=== PATIENT | female | born 1995 | race Caucasian/White ===

== ENCOUNTER 2020-03-26 10:14 | Outpatient (REF) | payer OTHER, SELFPAY | END 2020-03-26 10:15 | disposition home or self-care (01) | LOC: HO.LAB 10:14 | PROVIDERS: PCP Internal Medicine; Visit Provider Internal Medicine | DX: Z20.822 Contact with and (suspected) exposure to COVID-19 (principal) | CPT/HCPCS: 36415; C9803; U0003 ==

== ENCOUNTER 2021-04-03 12:26 | Emergency (ER) | payer OTHER, SELFPAY ==
--- NOTE | ~2021-04-03 | XR_ITS ---
EXAMINATION: XR CHEST CLINICAL INFORMATION: Chest pain COMPARISON: None TECHNIQUE: 2 views of the chest were obtained. FINDINGS: No significant abnormality is noted involving the heart, lungs, mediastinum, bony thorax or soft tissues. XR/XR chest 2V IMPRESSION: Unremarkable examination.
[2021-04-03 12:54] VITALS: BP 120/76; PULSE 111; RESP 18; TEMP 36.6; O2SAT 99; BMI 21.7
[2021-04-03] MEDS: Acetaminophen 325 MG TABLET 650 MG PO (19:16)
[2021-04-03 20:22] LABS: MANUAL DIFF FLAG NO
[2021-04-03 20:24] LABS: Basophils Percent Auto 0.2 % (0-2); Eosinophils Absolute Auto 0.2 X10*3/uL (0.0-0.4); Hematocrit 36.8 % (37.0-47.0); Hemoglobin 11.8 g/dl (12.0-16.0); Imm Gran Abs Auto 0.04 X10*3/uL (0.00-0.03); Imm Gran Pct Auto 0.4 % (0.0-0.4); Lymphocytes Absolute Auto 1.8 X10*3/uL (1.2-4.9); Lymphocytes Percent Auto 16.9 % (20-40); Mean Corpuscular HGB Conc 32.1 g/dl (31.0-35.0); Mean Corpuscular Hemoglobin 29.1 pg (27.0-33.0); Mean Corpuscular Volume 90.9 fL (80.0-98.0); Mean Platelet Volume 9.8 fL (9.4-12.3); Monocytes Absolute Auto 0.7 X10*3/uL (0.1-1.2); Monocytes Percent Auto 6.5 % (2-11); Neutrophils Absolute Auto 7.7 x10*3/uL (2.0-8.3); Platelet Count 434 X10*3/uL (160-400); Red Blood Count 4.05 X10*6/uL (4.20-5.50); Red Cell Distribution Width 12.9 % (11.0-16.0); White Blood Count 10.5 X10*3/uL (4.8-10.8)
[2021-04-03 20:35] LABS: Anion Gap 11 (12-20); Blood Urea Nitrogen 5 mg/dL (9-16); Calcium 9.2 mg/dL (8.4-10.2); Carbon Dioxide 26 mmol/L (22-29); Chloride 108 mmol/L (96-108); Creatinine Clr Calc Pharmacy 95.6; Estimated Glomerular Filt Rate > 60; Glucose Random 97 mg/dL (60-115); Potassium 3.6 mmol/L (3.3-5.1); Sodium 141 mmol/L (135-145)
[2021-04-03 21:15] VITALS: BP 101/67; PULSE 103; RESP 18; TEMP 36.8; O2SAT 100
[2021-04-03 23:39] VITALS: BP 100/64; PULSE 87; RESP 16; O2SAT 100
== END 2021-04-04 01:55 | disposition left against medical advice (07) ==
PROVIDERS: Emergency Provider Emergency Medicine
DX: R00.2 Palpitations (principal); I10 Essential (primary) hypertension
CPT/HCPCS: 36415; 71046; 80048; 85025; 99283

== ENCOUNTER 2022-05-24 21:44 | Emergency (ER) | payer OTHER, SELFPAY ==
[2022-05-24 22:12] VITALS: BP 109/67; PULSE 88; RESP 16; TEMP 36.5; O2SAT 99; BMI 27.3
--- NOTE | 2022-05-24 22:16 | ED.EAR ---
HPI - Ear Problem General Chief complaint: Ear Problems Stated complaint: ?left ear infection Time Seen by Provider: 05/24/22 22:16 Source: patient Mode of arrival: ambulatory Limitations: no limitations History of Present Illness HPI Narrative: 26-year-old female presents with 1 day of left ear pain and sore throat. MD Complaint: ear pain and decreased hearing Location: left ear Duration: constant Severity: moderate Relieving factors: nothing Exacerbating factors: chewing and palpation Discharge from ear: no Associated symptoms ear: neck pain Treatment prior to arrival: none Related Data Previous Rx's Medication Instructions Recorded cefuroxime axetil 500 mg tablet 500 mg PO Q12H 10 days #20 tabs 05/24/22 Allergies Allergy/AdvReac Type Severity Reaction Status Date / Time Penicillins [PENICILLINS] Allergy Unknown Rash Verified 05/24/22 22:51 Review of Systems Review of Systems: Constitutional: No Fever, positive Chills ENT/Mouth: Positive right Ear Pain, No Hoarseness, positive sore throat Cardiovascular: No Chest Pain, No SOB Respiratory: No Cough, No Dyspnea Gastrointestinal: No Nausea, No Vomiting, No Diarrhea, No abdominal Pain Genitourinary: No Dysuria, No Hematuria Musculoskeletal: No joint pain, No Myalgias Skin: No Skin lacerations, No rash Neuro: No Weakness, No Numbness, No Paresthesias, No Dizziness, No Headache Yes all other systems are reviewed and are negative [facility] Past Medical History Attestation statement: The following information was validated with the patient. Source: old records reviewed Social History Social History Advance Directives: No Advance Directives Information Provided: No Physical Exam Vital Signs: Vital Signs: Last Vital Signs Temp 97.7 F 05/24/22 22:12 Pulse 88 05/24/22 22:12 Resp 16 05/24/22 22:12 BP 109/67 05/24/22 22:12 Pulse Ox 99 05/24/22 22:12 O2 Del Method 05/24/22 22:12 BMI result Body Mass Index 27.3 Appearance: Alert. Oriented X3. Moderate distress. Eyes: Pupils equal, round and reactive to light. ENT: Pharynx erythematous with bilateral bulging tonsils with exudates, bilateral tympanic membranes erythematous bulging, left worse than the right. Left canal erythematous, right canal normal. Neck: Normal inspection. Neck supple. No mastoid tenderness. No vertebral tenderness step-offs. CVS: Normal heart rate and rhythm. Pulses normal. Respiratory: No respiratory distress. Skin: Skin warm and dry. Normal skin color. Extremities: Gait well bounce well coordinated. Neuro: No motor deficit. No sensory deficit. Cranial nerves 2-12 intact. Course Course Course Narrative: 26-year-old female presents for left ear pain and sore throat for 1 day. Patient states that she is unable to lay on the left side, and has not taken any medications to alleviate her pain. She does use Q-tips on a daily basis, and states that it was very tender cleaning her ears. She does not use ear buds, and have not gone swimming recently. She is currently breast feeding. She is allergic to penicillin, it was reported that the patient turned red as an infant while her mother was breast-feeding and taking penicillin at that time. She has not had any penicillins since. Physical exam indicates bilateral otitis media, left worse than the right left involving the canal, no perforation to the membranes, no mastoid tenderness, posterior and anterior cervical lymphadenopathy noted, pharyngeal exam indicates exam consistent with strep with pharyngeal erythema bulging tonsils with exudates patient is able to manage secretions, swallowing without difficulty. No indication of peritonsillar abscess or epiglottitis. Patient is afebrile, nontoxic-appearing, being able to manage secretions, even unlabored respirations, vital signs stable and within normal limits, O2 sat 99% on room air. Will try cefuroxime as patient is at this time. Patient verbalized understanding of and agrees to plan of care discharge home. Verbalized understanding of signs symptoms indicating need for emergent intervention Medications Administered Discontinued Medications Generic Name Dose Route Start Last Admin Trade Name Freq PRN Reason Stop Dose Admin Acetaminophen 650 mg 05/24/22 22:33 05/24/22 22:36 Acetaminophen 325 Mg Tablet PO 05/24/22 22:34 650 mg ONCE ONE Administration Cefuroxime Axetil 500 mg 05/24/22 22:23 05/24/22 22:35 Cefuroxime Axetil 500 Mg Tablet PO 05/24/22 22:24 500 mg ONCE ONE Administration Medical Decision Making Differential Diagnosis Differential Diagnoses: The differential diagnosis associated with the presentation includes Otitis media, otitis externa, mastoiditis, URI, pharyngitis, tonsillitis, epiglottitis, peritonsillar abscess External Record Review No prior records for this patient at this facility Prescription Management I considered prescription management with: Pain Medication and Antibiotic Discharge Plan Discharge Clinical Impression: Otitis media, Pharyngitis Patient Disposition: Home, Self-Care Instructions: Pharyngitis (ED), Ear Infection (ED) Additional Instructions: You were evaluated for your pain. Your physical exam indicates bilateral otitis media (ear infections) and pharyngitis. Please take cefuroxime 500 mg twice a day for the next 10 days. This medication is an antibiotic. This medication is safe to use while . We gave her 1st dose at 23:00. Your next dose is due at 11:00. Please take this medication every 12 hours. Complete the entire course of this medication. For pain management, take Tylenol 650 mg every 6 hours as needed. This medication will control fevers and pain. Write down what time you take this medication in order to prevent accidental overdose. This medication is safe for breast-feeding. Last dose was given to you around 23:00. Next dose is due at 05:00. Thank you for choosing this emergency department for evaluation. Please follow-up with primary care physician as needed. Return to the emergency department for any new, concerning, or worsening symptoms. Prescriptions: New cefuroxime axetil 500 mg tablet 500 mg PO Q12H 10 Days Qty: 20 0RF
[2022-05-24] MEDS: Acetaminophen 325 MG TABLET 650 MG PO (22:36)
== END 2022-05-24 23:36 | disposition home or self-care (01) ==
PROVIDERS: Emergency Provider Emergency Medicine Emergency Medical Services; PCP Physician Assistant
DX: H66.93 Otitis media, unspecified, bilateral (principal); J02.9 Acute pharyngitis, unspecified
CPT/HCPCS: 99283

== ENCOUNTER 2024-02-08 14:51 | Emergency (ER) | payer OTHER, SELFPAY ==
--- NOTE | ~2024-02-08 | XR_ITS ---
EXAMINATION: XR CHEST CLINICAL INFORMATION: Chest pain COMPARISON: X-ray 04/03/2021 TECHNIQUE: Frontal view of the chest was obtained. FINDINGS: No significant abnormality is noted involving the heart, lungs, mediastinum, bony thorax or soft tissues. XR/XR chest 1V IMPRESSION: No evidence of acute pulmonary process. Electronically signed by: Joe Silvestre MD 02/08/2024 09:56 PM EST
--- NOTE | 2024-02-08 14:52 | ECG_ITS ---
Test Reason : CP Blood Pressure : / mmHG Vent. Rate : 097 BPM Atrial Rate : 097 BPM P-R Int : 152 ms QRS Dur : 084 ms QT Int : 334 ms P-R-T Axes : 080 085 064 degrees QTc Int : 424 ms Normal sinus rhythm Normal ECG No previous ECGs available Referred By: Generic ED Physician Electronically Signed By:SCARLET SALDAÑA MD
[2024-02-08 15:57] VITALS: BP 99/56; PULSE 83; RESP 16; TEMP 36.9; O2SAT 99; BMI 24.9
--- NOTE | 2024-02-08 16:01 | ED.CHESTPAIN ---
HPI - Chest Pain General Chief Complaint: Chest Pain Stated Complaint: chest pain History of Present Illness HPI narrative: Patient left completion of treatment by ED Provider Related Data Previous Rx's ?Medication ?Instructions ?Recorded cefuroxime axetil 500 mg tablet 500 mg PO Q12H 10 days #20 tabs 05/24/22 cefuroxime axetil 500 mg tablet 500 mg PO Q12H 10 days #20 tabs 05/25/22 Allergies Allergy/AdvReac Type Severity Reaction Status Date / Time Penicillins [PENICILLINS] Allergy Unknown Rash Verified 02/08/24 15:59 [facility] Social History Social History Advance Directives: No Advance Directives Information Provided: No Physical Exam Vital Signs: Vital Signs: Last Vital Signs Temp 98.4 F 02/08/24 15:57 Pulse 83 02/08/24 15:57 Resp 16 02/08/24 15:57 BP 99/56 L 02/08/24 15:57 Pulse Ox 99 02/08/24 15:57 O2 Del Method Room Air 02/08/24 15:57 BMI result Body Mass Index 24.9 Course Course Course Narrative: RME: 28-year-old female presents to ED for chest pain/chest tightness slight inspiration. Patient denies any URI symptoms. Patient denies any recent long travel recent surgery patient denies any control use. Bilateral lower extremity negative for swelling or pitting edema. Lungs clear. EKG chest x-ray labs ordered. Medical Decision Making Lab Data 02/08/24 16:14 02/08/24 16:14 Labs: Lab Results 02/08/24 02/08/24 Range/Units 16:13 16:14 WBC 6.8 (4.8-10.8) X10*3/uL RBC 4.01 L (4.20-5.50) X10*6/uL Hgb 12.1 (12.0-16.0) g/dl Hct 36.2 L (37.0-47.0) % MCV 90.3 (80.0-98.0) fL MCH 30.2 (27.0-33.0) pg MCHC 33.4 (31.0-35.0) g/dl RDW 12.6 (11.0-16.0) % Plt Count 342 (160-400) X10*3/uL MPV 9.9 (9.4-12.3) fL Immature Gran % (Auto) 0.3 (0.0-0.4) % Neut % (Auto) 67.8 (45-73) % Lymph % (Auto) 21.8 (20-40) % [place] % (Auto) 7.4 (2-11) % Eos % (Auto) 2.4 (0-4) % Baso % (Auto) 0.3 (0-2) % Lymph # (Auto) 1.5 (1.2-4.9) X10*3/uL [place] # (Auto) 0.5 (0.1-1.2) X10*3/uL Eos # (Auto) 0.2 (0.0-0.4) X10*3/uL Baso # (Auto) 0.0 (0.0-0.2) X10*3/uL Abs Immat Gran (auto) 0.02 (0.00-0.03) X10*3/uL Absolute Neuts (auto) 4.6 (2.0-8.3) x10*3/uL Absolute Nucleated RBC 0.000 (0.0-0.012) X10*3/uL Nucleated RBC % (auto) 0.0 (0.0-0.2) /100WBC PT 12.8 H (10.9-12.4) SEC INR 1.1 (0.9-1.1) APTT 36.7 (26.0-36.8) SEC Sodium 140 (135-145) mmol/L Potassium 3.7 (3.3-5.1) mmol/L Chloride 109 H (96-108) mmol/L Carbon Dioxide 24 (22-29) mmol/L Anion Gap 11 L (12-20) BUN 17 H (9-16) mg/dL Creatinine 0.79 (0.5-1.4) mg/dL Estim Creat Clear Calc 89.7 Estimated GFR > 60 Random Glucose 92 (60-115) mg/dL Calcium 9.2 (8.4-10.2) mg/dL Total Bilirubin 0.2 (0.0-1.0) mg/dL AST 20 (5-31) U/L ALT 14 (0-31) U/L Alkaline Phosphatase 49 (39-117) U/L Troponin I High Sens < 2.7 (<3.5-17.0) ng/L B-Natriuretic Peptide 11 (<100) pg/mL Total Protein 6.7 (6.5-8.0) g/dL Albumin 4.1 (3.5-5.0) g/dL Influenza Type A (PCR) NEGATIVE (Negative) Influenza Type B (PCR) NEGATIVE (Negative) RSV RNA Qual (PCR) NEGATIVE (Negative) SARS-CoV-2 RNA (RT-PCR) NEGATIVE (Negative) S. pyogenes GrpA BHAVANI Positive A (Negative) Discharge Plan Discharge Clinical Impression: Chest pain Patient Disposition: Left W/O Completing Treatment Prescriptions: No Action cefuroxime axetil 500 mg tablet 500 mg PO Q12H 10 Days Qty: 20 0RF cefuroxime axetil 500 mg tablet 500 mg PO Q12H 10 Days Qty: 20 0RF Discharge Date/Time: 02/08/24 22:05
[2024-02-08 16:18] LABS: MANUAL DIFF FLAG NO
[2024-02-08 16:20] LABS: Basophils Percent Auto 0.3 % (0-2); Eosinophils Absolute Auto 0.2 X10*3/uL (0.0-0.4); Eosinophils Percent Auto 2.4 % (0-4); Hematocrit 36.2 % (37.0-47.0); Hemoglobin 12.1 g/dl (12.0-16.0); Imm Gran Abs Auto 0.02 X10*3/uL (0.00-0.03); Imm Gran Pct Auto 0.3 % (0.0-0.4); Lymphocytes Absolute Auto 1.5 X10*3/uL (1.2-4.9); Lymphocytes Percent Auto 21.8 % (20-40); Mean Corpuscular HGB Conc 33.4 g/dl (31.0-35.0); Mean Corpuscular Hemoglobin 30.2 pg (27.0-33.0); Mean Corpuscular Volume 90.3 fL (80.0-98.0); Mean Platelet Volume 9.9 fL (9.4-12.3); Monocytes Absolute Auto 0.5 X10*3/uL (0.1-1.2); Monocytes Percent Auto 7.4 % (2-11); Neutrophils Absolute Auto 4.6 x10*3/uL (2.0-8.3); Neutrophils Percent Auto 67.8 % (45-73); Platelet Count 342 X10*3/uL (160-400); Red Blood Count 4.01 X10*6/uL (4.20-5.50); Red Cell Distribution Width 12.6 % (11.0-16.0); White Blood Count 6.8 X10*3/uL (4.8-10.8)
[2024-02-08 16:25] LABS: IDNOW Serial# 08D9AD1C; INTERNATIONAL NORM RATIO 1.1 (0.9-1.1); Prothrombin Time 12.8 SEC (10.9-12.4); Strep A Nucleic Acid Positive (Negative)
[2024-02-08 16:28] LABS: Partial Thromboplastin Time 36.7 SEC (26.0-36.8)
[2024-02-08 16:38] LABS: Alanine Aminotransferase 14 U/L (0-31); Albumin Level 4.1 g/dL (3.5-5.0); Anion Gap 11 (12-20); Aspartate Amino Transferase 20 U/L (5-31); Bilirubin Total 0.2 mg/dL (0.0-1.0); Blood Urea Nitrogen 17 mg/dL (9-16); Calcium 9.2 mg/dL (8.4-10.2); Carbon Dioxide 24 mmol/L (22-29); Chloride 109 mmol/L (96-108); Creatinine Clr Calc Pharmacy 89.7; Estimated Glomerular Filt Rate > 60; Glucose Random 92 mg/dL (60-115); Potassium 3.7 mmol/L (3.3-5.1); Sodium 140 mmol/L (135-145); Total Protein 6.7 g/dL (6.5-8.0)
[2024-02-08 16:41] LABS: B Type Natriuretic Peptide 11 pg/mL (<100)
[2024-02-08 16:45] LABS: Troponin-I High Sensitivity < 2.7 ng/L (<3.5-17.0)
[2024-02-08 16:52] LABS: Alkaline Phosphatase 49 U/L (39-117)
[2024-02-08 17:00] LABS: Influenza A PCR NEGATIVE (Negative); Influenza B PCR NEGATIVE (Negative); Resp Syncy Virus RNA Qual PCR NEGATIVE (Negative); SARS COV2 PCR INHOUSE NEGATIVE (Negative)
--- OUTSIDE RECORDS SUMMARY | 2024-02-12 13:13 | XMS_ITS | Continuity of Care Document ---
Author Organization [facility] Address [address] [place] [address]- Care Team Providers Care Room Service Attendant Name Role Phone Brendan MAYBERRY, Lona Rudd Primary Care Physician [phone] Encounter [facility] R [id number] Date(s): 08/27/21 - 10/24/21 [facility] [address] [facility] [place] [address]- Attending Physician: Shikha BROWN, Jesi Irizarry Admitting Physician: Shikha BROWN, Jesi Irizarry Referring Physician: Denise JOHNSON, SIZE ROLLER OPERATOR, Aliyah Nails Allergies, Adverse Reactions, Alerts Substance Reaction Severity Status amoxicillin Active penicillin Active Immunizations Given and Recorded Vaccine Date Status Refusal Reason tetanus/diphtheria/pertussis, acel(Tdap) 1 10/06/18 Given rabies vaccine, human diploid cell 10/27/12 Given rabies vaccine, human diploid cell 10/23/12 Given rabies vaccine, human diploid cell 10/16/12 Given Rabies Immune Globulin, Human 2 10/16/12 Given 1Result Comment: Given R deltoid 2Result Comment: given by MD Medications Colace sodium 100 mg oral capsule 100 mg, 1, capsule, By Mouth, Daily, PRN, # 20 capsule, Refills 1, Tot. Refills 1, Maintenance, forconstipation, 07/24/21 20:45:00 EDT, Route to Pharmacy Electronically, [facility]/pharmacy #[id number], Partial fill upon patient request if the prescription is for... Start Date: 07/24/21 Status: Ordered Prenatabs Rx oral tablet 1 tablet, By Mouth, Daily, # 30 tablet, 11 Refills, Maintenance, 11/02/20 9:51:00 EDT, Tablet, [facility]/pharmacy #[id number], Partial fill upon patient request if the prescription is for a schedule II opioid drug., 1 tablet By Mouth Daily, 163, cm, 11/02/20 9:35... Start Date: 11/02/20 Status: Ordered Multivitamins with Folic Acid 1 mg oral tablet 1 tablet, By Mouth, Daily, # 90 tablet, 3 Refills, Maintenance, 07/16/21 15:00:00 EDT, Tablet, [facility]/pharmacy #[id number], Partial fill upon patient request if the prescription is for a schedule II opioid drug., 1 tablet By Mouth Daily, 163, cm, 11/02/20 9:35... 

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
--- OUTSIDE RECORDS SUMMARY | 2024-02-12 13:13 | XMS_ITS | Continuity of Care Document ---
Author Organization [facility] Address [address] [place] [address]- Care Team Providers Care Polystyrene Bead Molder Name Role Phone Brendan MAYBERRY, Lona Rudd Primary Care Physician [phone] Encounter [facility] Date(s): 08/27/21 - 12/04/[address] [address]- Attending Physician: Not on Staff, Attending MD Allergies, Adverse Reactions, Alerts Substance Reaction Severity [...] 07/24/21 20:45:00 EDT, Route to Pharmacy Electronically, [facility]/pharmacy #[id number], Partial fill upon patient request if the prescription is for... Start Date: 07/24/21 Status: Ordered Prenatabs Rx oral tablet 1 tablet, By Mouth, Daily, # 30 tablet, 11 Refills, Maintenance, 11/02/20 9:51:00 EDT, Tablet, [facility]/pharmacy #[id number], Partial fill upon patient request if [...] 100 in lifetime) entered on: 06/02/18 Sex Care Team Personnel Name: Brendan MAYBERRY, Lona Rudd Address: [address] [place] [address] Primary Care [place], [place] [address]
--- OUTSIDE RECORDS SUMMARY | 2024-02-12 13:13 | XMS_ITS | Continuity of Care Document ---
Author Organization [facility] Address [address] [place] [address]- Care Team Providers Care Machine Stacker Name Role Phone Brendan MAYBERRY, Lona Rudd Primary Care Physician [place] [facility] [place]02[place] - 01/01/[address] [address]- Attending Physician: Oumou Catalna Admitting Physician: AdmtrOumou Referring Physician: AdmtrOumou Allergies, Adverse Reactions, Alerts Substance Reaction Severity [...] 07/24/21 20:45:00 EDT, Route to Pharmacy Electronically, [facility]/pharmacy #[id number], Partial fill upon patient request if the prescription is for... Start Date: 07/24/21 Status: Ordered Prenatabs Rx oral tablet 1 tablet, By Mouth, Daily, # 30 tablet, 11 Refills, Maintenance, 11/02/20 9:51:00 EDT, Tablet, [facility]/pharmacy #[id number], Partial fill upon patient request [...] Date: 07/16/21 Status: Ordered Problem List Condition Confirmation Course Effective Dates Status Health St atus Informant Acne Confirmed Active Anxiety Confirmed Active Constipation Confirmed Active Nipple discharge Confirmed Active Chronic GERD Confirmed Active History of section Confirmed Active History of triplet in prior Confirmed Active History of delivery Confirmed Active COVID-19 vaccine series completed Confirmed Active Confirmed Active Social History Social History Type Response Smoking Status Never (less than 100 in lifetime) entered on: 06/02/18 Sex Patient Care team information Personnel Name: Brendan MAYBERRY, Lona Rudd Address: Address: [facility] [place], [place] [address]
--- OUTSIDE RECORDS SUMMARY | 2024-02-12 13:13 | XMS_ITS | Continuity of Care Document ---
Author Organization [facility] Address [address] [place] [address]- Care Team Providers Care Fan Runner Name Role Phone Brendan MAYBERRY, Lona Rudd Primary Care Physician [phone] Encounter [facility] [place] Date(s): 08/27/21 - 10/27/[address] [address]- Attending Physician: Not on Staff, Attending MD [...] 07/24/21 20:45:00 EDT, Route to Pharmacy Electronically, [facility]/pharmacy #[id number], Partial fill upon patient request if the prescription is for... Start Date: 07/24/21 Status: Ordered Prenatabs Rx oral tablet 1 tablet, By Mouth, Daily, # 30 tablet, 11 Refills, Maintenance, 11/02/20 9:51:00 EDT, Tablet, [facility]/pharmacy #[id number], Partial fill upon patient request if [...]
--- OUTSIDE RECORDS SUMMARY | 2024-02-12 13:13 | XMS_ITS | Continuity of Care Document ---
Author Organization [facility] Address [address] [place] [address]- Care Team Providers Care Electrical Laboratory Technician Name Role Phone Brendan MAYBERRY, Lona Rudd Primary Care Physician Encounter [facility] Date(s): 09/03/21 - 01/01/[address] [address]- Attending Physician: Not on Staff, Attending MD [...] 07/24/21 20:45:00 EDT, Route to Pharmacy Electronically, [facility]/pharmacy #[id number], Partial fill upon patient request if the prescription is for... Start Date: 07/24/21 Status: Ordered Prenatabs Rx oral tablet 1 tablet, By Mouth, Daily, # 30 tablet, 11 Refills, Maintenance, 11/02/20 9:51:00 EDT, Tablet, [facility]/pharmacy #[id number], Partial fill upon patient request [...] Name: Brendan MAYBERRY, Lona Rudd Address: Address: [address] [place] [address] Primary Care [place], [place] [address]
--- OUTSIDE RECORDS SUMMARY | 2024-02-12 13:13 | XMS_ITS | Continuity of Care Document ---
Author Organization [facility] Address [address] [place] [address]- Care Team Providers Care Transportation Director Name Role Phone Brendan MAYBERRY, Lona Rudd Primary Care Physician En[place] [facility] [place] Date(s): 09/27/21 - 10/27/[address] [address]- Attending Physician: Oumou Catalan Admitting Physician: AdmOumou lozada Referring Physician: AdmtrOumou Allergies, Adverse Reactions, Alerts [...] 07/24/21 20:45:00 EDT, Route to Pharmacy Electronically, [facility]/pharmacy #[id number], Partial fill upon patient request if the prescription is for... Start Date: 07/24/21 Status: Ordered Prenatabs Rx oral tablet 1 tablet, By Mouth, Daily, # 30 tablet, 11 Refills, Maintenance, 11/02/20 9:51:00 EDT, Tablet, [facility]/pharmacy #[id number], Partial fill upon patient request [...]
--- OUTSIDE RECORDS SUMMARY | 2024-02-12 13:13 | XMS_ITS | Continuity of Care Document ---
Author Organization [facility] Address [address] [place] [address]- Care Team Providers Care Senior Administrative Support Name Role Phone Brendan MAYBERRY, Lona Rudd Primary Care Physician Encounter [facility] Date(s): 12/25/20 - 01/24/[address] [address] Allergies, Adverse Reactions, Alerts Substance Reaction Severity [...] deltoid 2Result Comment: given by MD Medications Prenatabs Rx oral tablet 1 tablet, By Mouth, Daily, # 30 tablet, 11 Refills, Maintenance, 11/02/20 9:51:00 EDT, Tablet, [id number], Partial fill upon patient request if the prescription is for a schedule II opioid drug., 1 tablet By Mouth Daily, 163, cm, 11/02/20 9:35... Start Date: 11/02/20 Status: Ordered Problem List Condition Effective Dates Status Health Status Inform ant Chronic GERD(Confirmed) Active Contraception management(Confirmed) Active Social History Social History Type Response Smoking Status Never (less than 100 in lifetime) entered on: 06/02/18 Sex
--- OUTSIDE RECORDS SUMMARY | 2024-02-12 13:13 | XMS_ITS | Continuity of Care Document ---
Author Organization [facility] Address [address] [place] [address]- Care Team Providers Care Security Nurse Name Role Phone Brendan MAYBERRY, Lona Rudd Primary Care Physician Encounter [facility] Date(s): 08/13/20 - 09/12/[address] [address]- Allergies, Adverse Reactions, Alerts Substance Reaction Severity [...] deltoid 2Result Comment: given by MD Medications Apri 0.15 mg-0.03 mg oral tablet 1 tablet, By Mouth, Daily, # 28 tablet, 6 Refills, Maintenance, 06/18/20 8:34:00 EDT, Tablet, [id number], Partial fill upon patient request if the prescription is for a schedule II opioid drug., 1 tablet By Mouth Daily,x28 days, 163, cm, 06/18... Start Date: 06/18/20 Stop Date: 12/31/20 Status: Ordered Diflucan 150 mg oral tablet 1 tablet = 150 mg, By Mouth, Once, # 1 tablet, 1 Refills, Soft Stop, 06/18/20 8:46:00 EDT, [id number], Partial fill upon patient request if the prescription is for a schedule II opioid drug.,163, cm, 06/18/20 8:21:00 EDT, Height, 74.09, kg, 0... Start Date: 06/18/20 Status: Ordered Problem List Condition Effective Dates Status Health Status Inform ant Chronic GERD(Confirmed) Active Contraception management(Confirmed) Active Social History Social History Type Response Smoking Status Never (less than 100 in lifetime) entered on: 06/02/18 Sex
--- OUTSIDE RECORDS SUMMARY | 2024-02-12 13:13 | XMS_ITS | Continuity of Care Document ---
Author Organization [facility] Address [address] [place] [address]- Care Team Providers Care Power Shovel Engineer Name Role Phone Lona Cardona MD Primary Care Physician Encounter [facility] [place] Date(s): 07/14/20 - 11/11/[address] [address] Attending Physician: Anastasia Toney CNM Admitting Physician: Anastasia Toney CNM Referring Physician: Lona Cardona MD Allergies, Adverse Reactions, Alerts Substance Reaction [...] Given R deltoid 2Result Comment: given by Medications Prenatabs Rx oral tablet 1 tablet, [...]
--- OUTSIDE RECORDS SUMMARY | 2024-02-12 13:13 | XMS_ITS | Continuity of Care Document ---
Author Organization [facility] Address [address] [place] [address]- Care Team Providers Care Rn Child Name Role Phone Brendan MAYBERRY, Lona Rudd Primary Care Physician [phone] Encounter [facility] Date(s): 12/19/19 - 01/18/20 [facility] [address] [place] [address]- [facility] Allergies, Adverse Reactions, Alerts Substance Reaction Severity [...] capsule 100 mg, 1, capsule, By Mouth, 2 times a day, PRN, # 60 capsule, Refills 0, Tot. Refills 0, Maintenance, for constipation, 11/23/18 13:42:11 EDT, Route to Pharmacy Electronically, [id number], [facility]/pharmacy #[id number] Start Date: 11/23/18 Status: Ordered ferrous sulfate 325 mg oral tablet 1 tablet = 325 mg, By Mouth, Daily, # 30 tablet, 6 Refills, Maintenance, 06/14/18 16:09:26 EDT Start Date: 06/14/18 Status: Ordered Folic Acid Daily, 0 Refills, Maintenance, 06/11/18 11:57:58 EDT Start Date: 06/11/18 Status: Ordered ibuprofen 600 mg oral tablet 600 mg, 1, tablet, By Mouth, Every 6 hours, PRN, # 40 tablet, Refills 0, Tot. Refills 0, Maintenance, for pain, 11/23/18 13:42:01 EDT, Route to Pharmacy Electronically, [id number], [facility]/pharmacy #[id number] Start Date: 11/23/18 Status: Ordered oxyCODONE 5 mg oral tablet 5 mg, 1, tablet, By Mouth, Every 6 hours, PRN, # 20 tablet, Refills 0, Tot. Refills 0, Maintenance,for pain, 11/23/18 13:41:54 EDT, Route to Pharmacy Electronically, [id number], [facility]/pharmacy #[id number], Partial fill upon patient... Start Date: 11/23/18 Status: Ordered Multivitamins By Mouth, Daily, 0 Refills, Maintenance, 06/11/18 11:57:49 EDT Start Date: 06/11/18 Status: Ordered Senna 8.6 mg oral tablet 8.6 mg, 1, tablet, By Mouth, Daily, PRN, # 12 tablet, Refills 0, Tot. Refills 0, Maintenance, for constipation, 11/23/18 13:42:19 EDT, Route to Pharmacy Electronically, [id number], [facility]/pharmacy #[id number] Tablet Start Date: 11/23/18 Status: Ordered simethicone 80 mg oral tablet, chewable 80 mg, 1, tablet, Chew, 4 times a day, # 48 tablet, Refills 0, Tot. Refills 0, Maintenance, 11/23/18 13:42:16 EDT, Route to Pharmacy Electronically, [id number], [facility]/pharmacy#207 Start Date: 11/23/18 Status: Ordered Tylenol 325 mg oral capsule 2 capsule = 650 mg, By Mouth, Every 4 hours, PRN as needed for pain, # 90 capsule, 1 Refills, Maintenance, 11/23/18 13:42:07 EDT, Capsule Start Date: 11/23/18 Status: Ordered Zantac 150 oral tablet 1 tablet = 150 mg, By Mouth, 2 times a day, # 180 tablet, 1 Refills, Maintenance, 08/12/18 13:56:07EDT, Tablet Start Date: 08/12/18 Status: Ordered Problem List Condition Effective Dates Status Health Status Inform ant Chronic GERD(Confirmed) Active Social History Social History Type Response Smoking Status Never (less than 100 in lifetime) entered on: 06/02/18 Sex
--- OUTSIDE RECORDS SUMMARY | 2024-02-12 13:14 | XMS_ITS | Continuity of Care Document ---
Author Organization [facility] Address [address] [place] [address]- Care Team Providers Care Drywall Taper Name Role Phone Lona Cardona MD Primary Care Physician [phone] Encounter [facility] Date(s): 09/24/21 - 10/24/21 [facility] [address] [facility] [place] [address]- Attending Physician: AdmOumou lozada Admitting Physician: Admtr, Ar8 Referring Physician: Admtr, Ar8 Allergies, Adverse Reactions, Alerts Substance Reaction Severity [...] 07/24/21 20:45:00 EDT, Route to Pharmacy Electronically, [facility]/pharmacy #[id number], Partial fill upon patient request if the prescription is for... Start Date: 07/24/21 Status: Ordered Prenatabs Rx oral tablet 1 tablet, By Mouth, Daily, # 30 tablet, 11 Refills, Maintenance, 11/02/20 9:51:00 EDT, Tablet, [facility]/pharmacy #[id number], Partial fill upon patient request [...]
--- OUTSIDE RECORDS SUMMARY | 2024-02-12 13:14 | XMS_ITS | Continuity of Care Document ---
Author Organization [facility] Address [address] [place] [address]- Care Team Providers Care Telephone Solicitor Supervisor Name Role Phone Brendan MAYBERRY, Lona Rudd Primary Care Physician Encounter [facility] [place] Date(s): 10/10/21 - 11/15/[address] [address]- Attending Physician: Enriqueta MAYBERRY, Ny Paige Admitting Physician: Ny Robison MD Referring Physician: Denise JOHNSON, ONCOLOGY ACCOUNT SPECIALIST, Aliyah Nails Allergies, Adverse Reactions, Alerts Substance [...] R deltoid 2Result Comment: given by Medications Colace sodium 100 mg oral capsule 100 mg, 1, capsule, By Mouth, Daily, PRN, # 20 capsule, Refills 1, Tot. Refills 1, Maintenance, forconstipation, 07/24/21 20:45:00 EDT, Route to Pharmacy Electronically, [facility]/pharmacy #[id number], Partial fill upon patient request if the [...] 06/02/18 Sex Care Team Personnel Name: Brendan AMYBERRY, oLna Rudd Address: [address] [place] [address]
--- OUTSIDE RECORDS SUMMARY | 2024-02-12 13:14 | XMS_ITS | Continuity of Care Document ---
Author Organization [facility] Address [address] [place] [address]- Care Team Providers Care Veneer Taping Machine Operator Name Role Phone Brendan MAYBERRY, Lona Rudd Primary Care Physician Encounter [facility] Date(s): 11/02/20 - 12/02/[address] [address]- Attending Physician: Oumou Catalan Admitting Physician: AdmOumou [...]
--- OUTSIDE RECORDS SUMMARY | 2024-02-12 13:14 | XMS_ITS | Continuity of Care Document ---
Author Organization [facility] Address [address] [place] [address]- Care Team Providers Care Tracer Clerk Name Role Phone Brendan MAYBERRY, Lona Rudd Primary Care Physician [place] [facility] [place] 07/01/21 - 07/31/[address] [address] Allergies, Adverse Reactions, Alerts Substance Reaction Severity [...] 20:45:00 EDT, Route to Pharmacy Electronically, [facility]/pharmacy #[id number], Partial fill upon patient request if the prescription is for... Start Date: 07/24/21 Status: Ordered Prenatabs Rx oral tablet 1 tablet, By Mouth, Daily, # 30 tablet, 11 Refills, Maintenance, 11/02/20 9:51:00 EDT, Tablet, [facility]/pharmacy #1234, Partial fill upon patient request if the prescription is for a schedule II opioid drug., 1 tablet By Mouth Daily, 163, cm, 11/02/20 9:35... Start Date: 11/02/20 Status: Ordered Multivitamins with Folic Acid 1 mg oral tablet 1 tablet, By Mouth, Daily, # 90 tablet, 3 Refills, Maintenance, 07/16/21 15:00:00 EDT, Tablet, [facility]/pharmacy #[id number], Partial fill upon patient request if the [...]
--- OUTSIDE RECORDS SUMMARY | 2024-02-12 13:14 | XMS_ITS | Continuity of Care Document ---
Author Organization [facility] Address [address] [place] [address]- Care Team Providers Care Veneer Taper Name Role Phone Brendan MAYBERRY, Lona Rudd Primary Care Physician Encounter [facility] [place] Date(s): 07/26/21 - 08/25/[address] [address] Allergies, Adverse Reactions, Alerts Substance Reaction [...] 07/24/21 20:45:00 EDT, Route to Pharmacy Electronically, [facility]/pharmacy #[id number], Partial fill upon patient request if the prescription is for... Start Date: 07/24/21 Status: Ordered Prenatabs Rx oral tablet 1 tablet, By Mouth, Daily, # 30 tablet, 11 Refills, Maintenance, 11/02/20 9:51:00 EDT, Tablet, [facility]/pharmacy #[id number], Partial fill upon patient request if the prescription is for a schedule II opioid drug., 1 tablet By Mouth Daily, 163, cm, 11/02/20 9:35... Start Date: 11/02/20 Status: Ordered Multivitamins with Folic Acid 1 mg oral tablet 1 tablet, By Mouth, Daily, # 90 tablet, 3 Refills, Maintenance, 07/16/21 15:00:00 EDT, Tablet, [facility]/pharmacy #[id number], Partial fill upon patient request if the [...]
== END 2024-02-08 22:05 | disposition left against medical advice (07) ==
PROVIDERS: Physician Assistant; Emergency Provider Emergency Medicine Emergency Medical Services; PCP Physician Assistant
DX: R07.9 Chest pain, unspecified (principal); J02.0 Streptococcal pharyngitis; Z03.818 Encounter for observation for suspected exposure to other biological agents ruled out
CPT/HCPCS: 0241U; 36415; 71045; 80053; 83880; 84484; 85025; 85610; 85730; 87651; 93005; 99283

== ENCOUNTER → 2024-02-08 14:52 | Outpatient (BNV) | payer OTHER, SELFPAY | PROVIDERS: PCP Physician Assistant; Visit Provider Internal Medicine Cardiovascular Disease | DX: R07.9 Chest pain, unspecified (principal) | CPT/HCPCS: 93010 ==

== ENCOUNTER 2024-10-07 09:25 | Outpatient (REF) | payer OTHER, SELFPAY ==
--- NOTE | ~2024-10-07 | XR_ITS ---
CLINICAL HISTORY: M54.6 - Pain in thoracic spine 3 views thoracic spine Comparison: None provided Findings: Normal alignment. Likely positional slight dextroscoliosis. No acute fractures or dislocation. No significant vertebral body compression deformity. No significant degenerative change. IMPRESSION: 1. No acute fracture in the thoracic spine. 2. No significant degenerative changes. This document has been electronically signed by: Maggy Bagley DO on 10/07/2024 17:11:29
== END 2024-10-07 09:26 | disposition home or self-care (01) ==
LOC: HO.HOSX 09:25
PROVIDERS: PCP Physician Assistant; Visit Provider Physical Medicine & Rehabilitation
DX: M54.6 Pain in thoracic spine (principal)
CPT/HCPCS: 72072; 99202

== ENCOUNTER 2024-10-07 09:25 | Outpatient (AMB) | payer OTHER, SELFPAY ==
--- NOTE | 2024-10-07 09:31 | MHC.OFFVIS ---
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 States pain started about 4-5 years ago and has slowly worsen. No injury she can recall. Patient mentioned she had triplets 5 years ago and this might be the reason for pain. States her pain is main in the middle of her shoulder blades and mid back. Pain is worse when laying down for a prolong time. Denies numbness or tingling. Hx of epidural during and a spinal. Accompanied by: stephanie Allergies Penicillins (PENICILLINS) Allergy (Unknown, Verified 10/07/24 09:39) Rash Medication List - Last Reconciled 10/07/24 by Shu Thacker MD No Known Home Meds HPI Comments Details: Been having pain since with triplets in 2018. Second 2021, had epidural, pain was a little bit worse. For the last 3 years, bothers her everyday. Points to thoracic area and in between scapula. No radiation to arms or legs. The pain though could go to her chest. No numbness or weakness. No bladder/bowel changes. Played basketball for 2 years 2015. No sports injuries. Treated with self massage. 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 Patient was appropriately conversant and oriented. Good historian. MSK: Inspection reveals appropriate head and neck positioning. Tenderness over T4-T7 spinous processes and facets. Denied tenderness over paraspinals. No pain with palpation over the neck musculature. Cervical ROM was full. Spurling's sign negative. Bilateral shoulder, elbow and wrist ROM WNL. No ligamentous laxity or crepitance. No increased effusion. No specific abnormalities or instability found on inspection and palpation of the spine and extremities. Lumbar ROM was full. Strength is 5/5 in all muscle groups tested. No increased tone noted. Neurological: Neurologic examination of the upper and lower extremities was nonfocal with intact sensation, muscle stretch reflexes and without focal motor deficits . Perry?s negative bilaterally. Babinski was down going bilaterally. Clonus was negative. Gait is non-antalgic without loss of balance. Vital Signs: BMI result Body Mass Index 24.9 Assessment & Plan Assessment & Plan (1) Thoracic back pain: Code(s): M54.6 - Pain in thoracic spine Category: Medical Qualifiers: Chronicity: chronic Back pain laterality: midline Qualified Code(s): M54.6 - Pain in thoracic spine; G89.29 - Other chronic pain Plan She maintains that tenderness is over spinous processes. She has no history of osteoporosis or any significant accidents/falls. Discussed that tightness/myofascial pain over paraspinals and rhomboids are the more typical reason for pain in upper back. We will rule out facet arthritis or disc space narrowing by getting a thoracic x-ray today. Depending on results, would most likely refer her to physical therapy. If it shows any scoliosis, we would to scoliosis series if needed. Assessment and plan discussed with patient, and patient was agreeable. All questions were answered thoroughly. We will send results to patient via portal. Shu Thacker MD, GEOFF Board Certified, [place] [employer] and [employer] (ABPMR) Board Certified, [place] [employer] Electro[employer] (ABEM) Orders: Orders XR thoracic spine 3V Today M54.6 - Pain in thoracic spine Medications: Discontinued cefuroxime axetil Discontinued Reason: Patient Completed Course 500 mg PO Q12H 10 days 20 tabs 0RF cefuroxime axetil Discontinued Reason: Patient Completed Course 500 mg PO Q12H 10 days 20 tabs 0RF Coding Level of Care Code New Pt Level 3 (57244) Diagnoses Chronic midline thoracic back pain M54.6; G89.29 Chronicity: chronic Back pain laterality: midline
--- OUTSIDE RECORDS SUMMARY | 2024-10-07 09:31 | XMS_ITS | Clinical Summary ---
Author Organization [address] [place] [address] Address [address] [place] [address] Phone Care Team Providers Care Script Artist Name Role Phone Luanne Christensen MD Primary Care Prov ider Allergies Active Allergy Reactions Criticality Noted Date Comments Penicillins Rash Low 07/26/2021 Medications VIT 10-IRON FUM-FOLIC ORAL Take 1 tablet by mouth 1 (one) time each day. 3 Active hydrocortisone 1 % topical cream Apply to hemrrhoids 4 times a day 3 Active ketoconazole (NIZORAL) 2 % cream Apply cream to the affected areas of the bottom and top of feet twice daily 4 Active famotidine (PEPCID) 20 mg tablet Take 1 tablet (20 mg total) by mouth. Active Active Problems Problem Noted Date Diagnosed Date Gastroesophageal reflux disease 07/01/2021 Acne 11/12/2011 Encounters Date Type Department Care Team Description 09/26/2024 Telephone Adult Medicine [address] [phone] Luanne Christensen MD Headache; Nausea; Dizziness from Last 3 Months Immunizations Name Administration Dates Next Due DTaP (Infanrix) 6wks to less than 7yo ,05/14/1999,08/09/1998,04/26,1997 VVfM-SHN-NDG (Pentacel) 2mo to less than 5yo 05/14/1999,08/09/1998,04/26/1998,12/21 H1N1 Inj Preservative Free 04/17/2009 HPV 9-valent (Gardisil) 9yo to less than 46yo 08/06/2016 HPV, Quadrivalent 11/12/2011,08/30/2010 Hepatitis B (Kuzgkwr-W-Mwzxr , Recombivax HB-Adult) 19yo and older 06/18/2020 Hepatitis B Pediatric (Enger ix B; Recombivax HB) to less than 20 yo 04/26/1998,1997,1997 IPV Inactivated polio (Ipol) 6wks and older 05/24/2002,03/05/1999,04/26/1998,12/21 Influenza Quadravalent, MDCK , 0.5ml, preservative free (Flucelvax) 6mo and older 12/17/2021,02/25/2020,05/04/2018 Influenza Quadravalent, MDCK , 0.5ml, with preservative (Flucelvax) 6mo and older 01/16/2021,06/07/2019 Influenza trivalent, 0.5mL, preservative free (Fluarix; FluLaval; Fluzone) ages 6mo and older (Afluria) 3 years and older 05/01/2015 MMR, measles mumps and rubel la Live (Priorix; M-M-R II) 12mo and older 05/24/2002,03/05/1999 Meningococcal MCV4P 08/06/2016,11/12/2011 PPD Test 06/07/2019 [id number] SARS-CoV-2 COVID-19, mRNA, LNP-S, preservative free 02/25/2021,02/01/2021 Rabies Vaccine, For Intramus cular Injection Retired Code 10/27/2012,10/23/2012,10/16/2012 Td Tetanus diptheria (Tdvax) 7yo and older 05/01/2015 Tdap Tetanus diptheria acell ular pertussis (Boostrix; Adacel) 7yo and older 12/17/2021,10/06/2018,08/29/2009 Varicella live (Varivax) 12m o and older 03/09/2022,08/29/2009,05/14/1999 Surgical History Surgery Date Site/Laterality Comments OTHER SURGICAL HISTORY PROCEDURE: ANESTHESIA FOR SECTION WISDOM TOOTH EXTRACTION 2017 PROCEDURE: HISTORICAL WISDOM TEETH EXTRACTION; COMMENT: all 4 removed Medical History Medical History Date Comments Depression 06/2010 DX:Depression; C OMMENT: admitted at [place] for suicidal ideation/plan ADHD (attention deficit hype ractivity disorder) DX:ADHD (attention deficit hyperactivity disorder); COMMENT: was on concerta in the past Unspecified family circumstance 12/10/2011 DX:Unspecified family circumstance; COMMENT: 12/02 active 53 a UTI (urinary tract infection) 07/2016 DX :UTI (urinary tract infection) Gastroesophageal reflux disease 07/01/2021 DX:Gastroesophageal reflux disease Multigravida 05/04/2018 DX:Multigravida; COMMENT: Triplets History of COVID-19 07/01/2021 DX:History o f COVID-19; COMMENT: Prior to - Positive 02/06/2021 History of 08/06/2021 DX:History of ; COMMENT: History of c/s for identical triplets at 35 weeks. Desires TOLAC Family History Medical History Relation Name Comments Brain cancer Aunt maternal aunt Asthma Brother 1 older(twin) Asthma Brother 2 older(twin) No Known Problems Daughter 1 Triplet No Known Problems Daughter 2 Triplet No Known Problems Daughter 3 Triplet No Known Problems Daughter 4 Bipolar disorder Father schizophren ia Other: etoh Father Asthma Maternal Grandfather Emphysema Maternal Grandfather Diabetes Maternal Grandmother Stroke, CAD Asthma Mother Hyperlipidemia Mother Other: anxiety Mother Other: high cholesterol Mother fath , extensive on both sides Other: 03/14 Mother Cataracts Paternal Grandfather Glaucoma Paternal Grandfather Dementia Paternal Grandmother brain a neurysm Asthma Sister 1 older sister non-hodgkins ly mphoma (2016) Other: hernia Sister 2 older sister Asthma Sister 3 younger sister Emphysema Uncle Hypertension Uncle Other: nodule on lung Uncle Blindness Neg Hx Macular degeneration Neg Hx Strabismus Neg Hx Relation Name Status Comments Aunt maternal aunt Brother 1 older(twin) Alive Brother 2 older(twin) Alive Brother 3 older Alive Daughter 1 Triplet Alive Daughter 2 Triplet Alive Daughter 3 Triplet Alive Daughter 4 Alive Father suicide 09/04/19 09, shot by police Maternal Grandfather Maternal Grandmother Mother Paternal Grandfather Paternal Grandmother Sister 1 older sister Alive Sister 2 older sister Alive Sister 3 younger sister Alive Uncle Alive Social History Tobacco Use Types Packs/Day Years Used Date Smoking Tobacco: Former Smokeless Tobacco: Never Alcohol Use Standard Drinks/Week Comments No 0 (1 standard drink = 0.6 oz pur e alcohol) Comments Unknown Sex and Gender Information Value Date Recorded Sex Assigned at Not on file Legal Sex Female 1:00 AM EST Gender Identity Not on file Sexual Orientation Not on file Obstetrics History Last Filed Vital Signs Vital Sign Reading Time Taken Comments Blood Pressure 101/66 03/31/2023 11:17 AM EST Pulse 93 03/31/2023 11:17 AM EST Temperature - - Respiratory Rate - - Oxygen Saturation - - Inhaled Oxygen Concentration - - Weight 54 kg (119 lb) 03/01/2024 1:27 PM EST Height 154.9 cm (5' 1 ) 03/01/2024 1:27 PM EST Body Mass Index 22.48 03/01/2024 1:27 PM EST Plan of Treatment Health Maintenance Due Date Last Done Comments HIV Screening 03/01/2022 Hepatitis C Screening 03/01/2022 Cervical Cancer Screening: Pap Smear 11/03/2023 11/02/2020, 08/31/2019 COVID-19 Vaccine ( season) 2023 12/31/2021, 02/25/2021, 02/01/2021 Depression Screening 03/31/2024 03/31/2023 Social Influencers of Health Screening 03/31/2024 03/31/2023 Influenza Vaccine (#1) 2024 , 01/16/2021, 02/25/2020, Additional history exists DTaP,Tdap,and Td Vaccines (10 - Td or Tdap) 12/18/2031 12/17/2021, 10/06/2018, 05/01/2015, Additional history exists HIB Vaccines Completed 05/14/1999, 07/22, 04/26/1998, Additional history exists IPV Vaccines Completed 05/24/2002, 04/24, 03/05/1999, Additional history exists MMR Vaccines Completed 05/24/2002, 03/05/1999 HPV Vaccines Completed 08/06/2016, 10/22, 08/30/2010 Meningococcal ACWY Vaccine Completed 08/06/2016, Hepatitis B Vaccines Completed 06/18/2020, 04/26/1998, 1997, Additional history exists Varicella Vaccines Completed 03/09/2022, 0 08/29/2009, 05/14/1999 Hepatitis A Vaccines Aged Out No long er eligible based on patient's age to complete this topic Meningococcal B Vaccine Aged Out No l onger eligible based on patient's age to complete this topic Pneumococcal Vaccine: Pediatrics (0 to 5 Years) and At-Risk Patients (6 to 49 Years) Aged Out No longer eligible based on patient's age to complete this topic RSV Immunization Patients Under 20 months Aged Out No longer eligible based on patient's age to complete this topic Procedures Procedure Name Priority Date/Time Associated Diagnosis Comments PAP SMEAR Routine 08/31/2019 from Last 3 Months or Most Recently Relevant to Health Maintenance Results * Pap smear (08/31/2019) 08/31/2019 Narrative HISTORICAL TESTING LAB RESULTING AGENCY - 09/05/2019 11:46 AM EDT [id number] THINPREP PAP, IMAGED: NEGATIVE FOR SQUAMOUS INTRAEPITHELIAL LESION AND MALIGNANCY . ABUNDANT RED BLOOD CELLS ARE PRESENT. CL[place] TABARES(ASCP) (CASE ELECTRONICALLY SIGNED 09 05 2019) ADEQUACY: SATISFACTORY ENDOCERVICAL/TRANSFORMATION ZONE COMPONENT PRESENT. SOURCE: THINPREP PAP, CERVICAL, IMAGED CLINICAL INFORMATION: HORMONES, Z12.4 Gem [facility] LAB CYTOLOGY ORDERABLES Final Result HISTORICAL TESTING LAB RESULTING AGENCY from Last 3 Months or Most Recently Relevant to Health Maintenance Insurance [facility] [facility] Care Teams Script Artist Relationship Specialty Start Date End Date Luanne Christensen MD PCP - General Internal Medicine 10/22/21
--- OUTSIDE RECORDS SUMMARY | 2024-10-07 09:31 | XMS_ITS | Encounter Summary ---
Author Organization [facility] Address [address] [place] [address] Care Team Providers Care Desktop Administrator Name Role Phone Luanne Alvarez MD Primary Care Prov ider Encounter Details Date Type Department Care Team Description 03/09/2022 Hospital Medical Records [address] [place] [address] Nils Jimenez, [facility] [address] [place] [address] Social History Tobacco Use Types Packs/Day Years Used Date Smoking Tobacco: Former Smokeless Tobacco: Never Comments:[place]oked cig[place]- quit 2-3 yrs ago. Alcohol Use Standard Drinks/Week Comments No 0 (1 standard drink = 0.6 oz pur e alcohol) Sex Assigned at Date Recorded Female 02/09/2020 5:[address] Job Start Date Occupation Industry Not on file Not on file Not on file COVID-19 Exposure Response Date Recorded In the last 10 days, have yo u been in contact with someone who was confirmed or suspected to have Coronavirus/COVID-19? No / Unsure 03/05/2022 10:54 AM EST documented as of this encounter Plan of Treatment Not on file documented as of this encounter Visit Diagnoses Not on filedocumented in this encounter Care Teams Desktop Administrator Relationship Specialty Start Date End Date Luanne Alvarez MD [address] [place] [address] PCP - General Internal Medicine 10/22/21 documented as of this encounter
--- OUTSIDE RECORDS SUMMARY | 2024-10-07 09:31 | XMS_ITS | Data Portability ---
Author Organization SHAWANDA Colon s, [address] Address [address] [place] [address] Assessment No assessment recorded. Plan of Treatment Reminders Order Date Submit Date Provider Last Modified By Organization Details Last Modified Time Details Appointments None recorded. Lab None recorded. Referral None recorded. Procedures None recorded. Surgeries None recorded. Imaging None recorded. Medication Orders clindamycin HCl 300 mg capsule 2022 023 [facility]armacy #[id number], [address] [place], [address], 3 19:48:08 prednisone 20 mg tablet 2022 023 [facility]/Pharmacy #[id number], [address] [place], [address], 3 19:48:08 Allergy Relief (fluticason e) 50 mcg/actuati on nasal spray,suspe nsion 2022 023 [id number] [address] [place], [address], 19:48:07 Patient TargetsNo targets recorded. Patient Instructions Encounter Date Encounter Id Patient Instructions Last Modified By Organization Details Last Modified Time 05/24/2022 [id number] An ear infection may start with a cold and affect the middle ear (otitis media). It can hurt a lot. Most ear infections clear up on their own in a couple of days and do not need antibiotics. Also, antibiotics do not work against viruses, which may be the cause of your infection. Regular doses of pain relievers are the best way to reduce your fever and help you feel better. How can you care for yourself at home? Take pain medicines exactly as directed. If the doctor gave you a prescription medicine for pain, take it as prescribed. If you are not taking a prescription pain medicine, take an rtud-uso-bboyoaj medicine, such as acetaminophen (Tylenol), ibuprofen (Advil, Motrin), or naproxen (Aleve). Read and follow all instructions on the label. Do not take two or more pain medicines at the same time unless the doctor told you to. Many pain medicines have acetaminophen, which is Tylenol. Too much acetaminophen (Tylenol) can be harmful. Plan to take a full dose of pain reliever before bedtime. Getting enough sleep will help you get better. Try a warm, moist face cloth on the ear. It may help relieve pain. If your doctor prescribed antibiotics, take them as directed. Do not stop taking them just because you feel better. You need to take the full course of antibiotics. Not available 05/24/2022 19:47:12 Sinusitis is an infection of the lining of the sinus cavities in your head. Sinusitis often follows a cold. It causes pain and pressure in your head and face. In most cases, sinusitis gets better on its own in 1 to 2 weeks. But some mild symptoms may last for several weeks. Sometimes antibiotics are needed. if you are having problems. It's also a good idea to know your test results and keep a list of the medicines you take. How can you care for yourself at home? Take an zsbi-mhg-jxkguyh pain medicine. Avoid Ibuprofen, Aleve and Aspirin if . If the doctor prescribed antibiotics, take them as directed. Do not stop taking them just because you feel better. You need to take the full course of antibiotics. Be careful when taking cszt-ptd-fhfhgkm cold or influenza (flu) medicines and Tylenol at the same time. Many of these medicines have acetaminophen, which is Tylenol. Read the labels to make sure that you are not taking more than the recommended dose. Too much acetaminophen (Tylenol) can be harmful. Breathe warm, moist air from a steamy shower, a hot bath, or a sink filled with hot water. Avoid cold, dry air. Using a humidifier in your home may help. Follow the directions for cleaning the machine. Use saline (saltwater) nasal washes. This can help keep your nasal passages open and wash out mucus and bacteria. You can buy saline nose drops at a grocery store or drugstore. Or you can make your own at home by adding 1 teaspoon (5 millilitres) of salt and 1 teaspoon (5 millilitres) of baking soda to 2 cups (500 mL) of distilled water. If you make your own, fill a bulb syringe with the solution, insert the tip into your nostril, and squeeze gently. Blow your nose. Put a hot, wet towel or a warm gel pack on your face 3 or 4 times a day for 5 to 10 minutes each time. Try a decongestant nasal spray like oxymetazoline (Drixoral). Do not use it for more than 3 days in a row. Using it for more than 3 days can make your congestion worse. Not available 05/24/2022 19:47:20 Reason for Referral None Reported. Problems Name Problem SNOMED Code Status Onset Date Resolution Date Notes Provider Name and Address Organization Details Recorded Time Constipation 54981768 Active 023 EDWIN Nickerson null, [place] - [facility] 18:41:29 Problem Notes None recorded. Procedures Surgical History Date Name Laterality Status Provider Name and Address Organization Details Recorded Time section completed EDWIN HOWELL PA - [facility] 05/24/2022 18:41:59 Imaging Results None recorded. Procedure Notes None recorded. Medical Equipment None Reported. Allergies Allergen ID Allergen Name Allergen Category Reaction Reaction Severity Criticality Documentation Date Start Date Code Code System Note Provider Name and Address Organization Details Recorded Time 635697 Product containin g penicilli n (product) medicatio n hives Not available Not available 05/24/2022 36056 8001 SNOMED EDWIN Nickerson null, PA - [facility] 18:39:58 497845 amoxicill in medicatio n hives Not available Not available 05/24/2022 723 RxNorm EDWIN Nickerson null, [place] - [facility] 18:40:07 Medications Name Sig Start Date Stop Date Status Note LastModified by Organization Details LastModified Time clindamycin HCl 300 mg capsule TAKE 1 CAPSULE BY MOUTH EVERY 8 HOURS WITH MEALS FOR 7 DAYS active Not Available Not Available No t Available prednisone 20 mg tablet TAKE 2 TABLETS EVERY DAY BY ORAL ROUTE IN THE MORNING FOR 3 DAYS. active Not Available Not Available No t Available aspirin 81 mg tablet,gisell yed release TAKE 1 TABLET BY MOUTH EVERY DAY 05/24 completed Not Available Not Available Not Available famotidine 20 mg tablet TAKE 1 TABLET BY MOUTH TWICE A DAY 05/24 completed Not Available Not Available Not Available docusate sodium 100 mg capsule TAKE 1 CAPSULE BY MOUTH EVERY DAY NEEDED FOR CONSTIPAT ION active Not Available Not Available No t Available cefuroxime axetil 500 mg tablet TAKE 1 TABLET BY MOUTH EVERY 12 HOURS FOR 10 DAYS. active Not Available Not Available No t Available fluticasone propionate 50 mcg/actuati on nasal spray,suspe nsion SPRAY 1 SPRAY BY INTRANASA L ROUTE TWICE A DAY DIRECTED active Not Available Not Available No t Available Medicated Pads 50 % topical pads APPLY TO ANORECTAL AREA NEEDED UP TO 6 TIMES DAILY OR AFTER EACH BOWEL MOVEMENT active Not Available Not Available No t Available Vitamins Plus Low Iron 27 mg iron-1 mg tablet TAKE 1 TABLET BY MOUTH EVERY DAY active Not Available Not Available No t Available naloxone 4 mg/actuatio n nasal spray USE DIRECTED 05/24 completed Not Available Not Available Not Available Vitals Date Recorded Body height Body mass index (BMI) Body weight Body temperature Respiratory rate Heart rate Oxygen saturation Oxygen saturation in Arterial blood by Pulse oximetry Systolic And Diastolic Provider Name and Address Organization Details Last Updated DateTime 3 154.94 cm 27.4 kg/m2 32495.8 9 g 97.8 [degF] 18 /min 90 /min 99 % 99 % 101/65 mm[Hg] EDWIN Beltran [facility] 3 18:43:37 Social History Question Answer Notes LastModified by Organizat ion Details LastModified Time Tobacco Smoking Status Former Smoker SHAWANDA Talbot [facility] 05/24/2022 18:41:44 What Is Your Water Source? City Information not available 05/24/2022 What Is Your Heat Source? Other Information not available 05/24/2022 Have You Had Direct Contact, Or Contact During Intimacy, With Monkeypox Rash, Scabs, Or Body Fluids From A Person With Monkeypox? No Information not available 05/24/2022 Have You Recently Traveled Abroad? No Information not available 05/24/2022 Sex: Unknown Functional Status Question Answer Note LastModified by Organizat ion Details LastModified Time Do you use any illicit or recreational drugs? No Information not available 05/24/2022 Do you or have you ever used any other forms of tobacco or nicotine? No Information not available 05/24/2022 What is your level of alcohol consumption? Occasional Information not available 05/24/2022 Mental Status None recorded. Family History Relationship Description Onset Age of this Age Resolved Age Notes LastModified by Organization Details LastModified Time Father No current problems or disability Not available 18:41:32 Mother No current problems or disability Not available 18:41:32 Medical History No medical history recorded. Gynecological HistoryNo gynecological history recorded. Obstetrics History GPAL:G 0 P 0 0 0 0 Past Encounters Encounter ID Performer Location Encounter Start Date Encounter Closed Date Diagnosis/Indication Diagnosis SNOMED-CT Code Diagnosis ICD10 Code Diagnosis Note [id number] [address] [place] [address] 05/25/2017 17:07:08 05/25/2017 17:39:38 [id number] [address] [place] [address] 01/27/2017 14:35:04 01/27/2017 15:08:56 [id number] [address] [address] [address] 02/13/2020 16:36:18 02/13/2020 18:53:18 [id number] [address] [address] [place] [address] 2019 12:41:10 2019 14:39:19 [id number] [place] [address] 04/02/2021 16:54:03 04/02/2021 19:19:18 [id number] [address] [place] [address] 12/26/2017 15:57:57 12/26/2017 17:51:12 [id number] Fortino Cruz NP [address] [place] [address] 05/24/2022 18:27:18 05/24/2022 19:48:54 Acute left otitis media 618366195 H66.92 Health Concerns Section Related Observation LastModified by Organization Detai ls LastModified Time None Recorded Concern Status LastModified by Organization Details LastModified Time None Recorded Advance Directives Directive None Recorded Payers Insurance Date Sequence Insurance Name Policy Number Policy Manuel Covered Member ID Manuel Member ID Guarantor Name 05/24/2022 1 [facility] (MEDICAID HMO) [place] Borrego [id number] Sara Borrego Notes Date Note Type Note Provider Name and Address Organization Details Recorded Time 05/24/2022 text/html CongestionReport ed bypatient.Notes:nasal congestion with post nasal drip x 3 days. denies nay fever or fever with chills. no SOB or respiratory distress.Ear Pain Brief HPIReported bypatient.Location:pain radiates to neck; bilateral Onset/Timing:intermitte nt pain; gradual onset Duration:occurs daily; sensation/episode variable length Quality:aching pain;sharp pain Severity:getting worse; current pain 5/10 Context:recent ear infection Alleviating factors:ototopical antibiotics: ; nasal steroid spray Aggravating factors:sinus infections; allergies; irrigation of ear Associated Symptoms:Cough;nasal congestion;nasal discharge Fortino Cruz NP [address] [place], [address], [place] - [facility] 05/24/2022 19:48:48 OBGyn Episode No OBEpisode recorded.
[2024-10-07 09:32] VITALS: BMI 24.9
== END 2024-10-07 10:28 | disposition home or self-care (01) ==
LOC: HO.HOS 09:25
PROVIDERS: PCP Physician Assistant; Visit Provider Physical Medicine & Rehabilitation
DX: M54.6 Pain in thoracic spine (principal); G89.29 Other chronic pain
CPT/HCPCS: 99203

== ENCOUNTER → 2024-10-07 10:00 | Outpatient (BNV) | payer OTHER, SELFPAY | PROVIDERS: PCP Physician Assistant; Visit Provider Radiology Diagnostic Radiology | DX: M54.6 Pain in thoracic spine (principal) | CPT/HCPCS: 72072 ==